=== PATIENT | male | born 1945 | race Caucasian/White ===

== ENCOUNTER → 2016-06-26 | Outpatient (CLI) | payer MEDICARE ==
[2016-06-26 16:51] LABS: BASOPHIL % 0.3 %; EOSINOPHIL # 0.2 K/uL (0.0-0.5); EOSINOPHIL % 3.4 %; HEMATOCRIT 45.8 % (37.0-53.0); HEMOGLOBIN 15.8 g/dL (11.0-16.0); IMMATURE GRANULOCYTE % 0.2 %; LYMPHOCYTE # 2.1 K/uL (0.8-4.0); LYMPHOCYTE % 34.2 %; MCH 31.9 pg (27.0-34.0); MCHC 34.5 gm/dL (32.0-36.5); MCV 92.3 fl (83.0-98.0); MONOCYTE # 0.5 K/uL (0.0-1.0); MONOCYTE % 7.8 %; MPV 9.6 fl (9.4-12.4); NEUTROPHIL # (ANC) 3.4 K/uL (1.4-9.0); NEUTROPHIL % 54.1 %; NRBC % 0 /100WBC (0-0.00); PLATELET COUNT 177 K/uL (150-450); RBC 4.96 M/uL (3.50-5.50); RDW-CV 12.7 % (11.9-14.6); WBC 6.3 K/uL (4.0-11.0)
[2016-06-26 17:09] LABS: ALBUMIN 4.4 gm/dL (3.5-5.0); ALK PHOS 56 IU/L (33-138); ALT 20 IU/L (12-78); ANION GAP 9.8 (10.0-19.0); AST 12 IU/L (10-40); BLOOD UREA NITROGEN 19 mg/dL (6-24); CHLORIDE 99 mMol/L (96-110); CO2 33 mMol/L (22-32); ESTIMATED GFR (MDRD EQUATION) > 60; POTASSIUM 3.8 mMol/L (3.7-5.1); SODIUM 138 mMol/L (135-145)
[2016-06-26 17:17] LABS: TOTAL BILIRUBIN 0.8 mg/dL (0.0-1.5); TOTAL PROTEIN 7.9 g/dL (6.0-8.4)
== END | disposition disaster alternative care site (69) ==
LOC: LNHI 16:30
PROVIDERS: Internal Medicine Cardiovascular Disease
DX: I25.10 Atherosclerotic heart disease of native coronary artery without angina pectoris (principal); I10 Essential (primary) hypertension; E78.4 Other hyperlipidemia